=== PATIENT | female | born 1935 | race Caucasian/White ===

== ENCOUNTER 2017-02-18 15:40 | Emergency (ER) | payer MEDICARE, SELFPAY ==
[~2017-02-18 15:40] MED LIST: ASPIR 8181 M1 PO; ASPIR 8181 MG PO; ASPIRIN81 MG; ATENOLOL25 MG PO; BUDESONIDE EC3 MG PO; CALCIUM + VITA1 EAC4 PO; CALCIUM + VITA1 EACH PO; CALCIUM500 MG; DILTIAZEM HCL; FERROUS SULFAT325 MG PO; FISH OIL1 CAP; FOSAMAX70 MG; GLUCOSAMINE-CH1 EAC5 PO; HYDROCHLOROTHIA25 MG; IBUPROFEN200 M3 PO; LEVOTHROID100 MCG; LEVOXYL88 MCG PO; LIPITOR20 MG; LISINOPRIL10 MG PO; MIRALAX17 G2 PO; MULTI VITAMIN1 EAC1 PO; MULTI VITAMIN1 EAC2 PO; MULTIVITAMIN1 TAB; NORCO 5/325 TAB1 TAB PO; SINEMET 25-1001 EAC1 PO; SINEMET 25-1001 EACH PO; SINEMET ER 25/11 TA1 PO; SKELAXIN800 MG PO; STOOL SOFTENER100 MG PO; SYNTHROID50 MC1 PO; TRAMADOL HCL50 M2 PO; TRAMADOL HCL50 MG PO; TYLENOL EXTRA500 M1 PO; TYLENOL325 M2 PO; VITAMIN D1000 UNI2 PO; VITAMIN D1000 UNIT PO; VITAMIN E400 UNI1 PO; VITAMIN E400 UNI4 PO
[2017-02-18] MEDS ORDERED: NORCO 5/3251 TAB PO (17:05)
== END 2017-02-18 17:12 ==
LOC: EDMED 15:40
DX: S30.0XXA Contusion of lower back and pelvis, initial encounter (principal); M54.32 Sciatica, left side; G20 Parkinson's disease; Z79.899 Other long term (current) drug therapy; W10.9XXA Fall (on) (from) unspecified stairs and steps, initial encounter